=== PATIENT | female | born 1995 | race Caucasian/White ===

== ENCOUNTER 2016-09-12 23:53 | Inpatient (IN) | payer BC ==
--- OUTSIDE RECORDS SUMMARY | 2016-09-12 23:57 | XMS REPORT | Continuity of Care Document ---
:1995 Author Organization [facility] [place] [address] Care Team Providers Name Role Phone George, Gertrude Primary Care Provider [phone] Source Comments This disclosure is being made pursuant to the OR Productivity program and maynot contain all information available regarding this patient.[facility] Active Allergies and Adverse Reactions Not on File Current Medications Be aware that medications may not be up to date as of this document. Alwaysverify current medications with the patient. No known medications Active Problems Not on file Social History Tobacco Use Types Packs/Day Years Used Date Never Smoker Smokeless Tobacco: Never Used Alcohol Use Drinks/Week oz/Week Comments No 0 Standard drinks or equivalent 0.0 Last Filed Vital Signs Vital Sign Reading Time Taken Blood Pressure 106/74 09/09/2015 9:36 AM CDT Pulse 86 09/09/2015 9:36 AM CDT Temperature - - Respiratory Rate - - Height 1.588 m (5' 2.5") 09/09/2015 9:36 AM CDT Weight 60.782 kg (134 lb) 09/09/2015 9:36 AM CDT Body Mass Index 24.1 09/09/2015 9:36 AM CDT Oxygen Saturation - - Plan of Care Date Type Specialty Providers Description 09/19/2016 Appointment Obstetrics and Gynecology Yasemin Valdes MD [facility] [address] [place] [address] [phone] (Fax) Health Maintenance Due Date Last Done Comments HPV Vaccine ([id number]) (1 of 3 - Female 3 Dose Series) 2004 Chlamydia Screening 2009 Tetanus/Pertussis (1 - Tdap) 2012 Influenza Immunization (#1) 2015 Pap Smear 09/08/2018 09/09/2015 Results from Last 3 Months Not on file
[2016-09-13] MEDS ORDERED: RINGERS SOLUTION,LACTATED 1,000 ML IV ONE (00:01)
[2016-09-13] MEDS ORDERED: DEXTROSE 5%-LACTATED RINGERS 1,000 ML IV PRN (00:01)
[2016-09-13] MEDS ORDERED: OXYTOCIN/DEXTROSE 5%-WATER 30 UNITS/500 ML BAG IV ONE ×2 (00:01→19:22)
[2016-09-13] MEDS ORDERED: LIDOCAINE HCL 50 ML VIAL PERI PRN (00:01)
[2016-09-13] MEDS ORDERED: INSULIN REGULAR HUMAN REC 100 UNITS in NORMAL SALINE 100 ML IV PRN (00:01)
[2016-09-13] MEDS ORDERED: PENICILLIN G POTASSIUM 5 MILLIONUNT in DEXTROSE 5 % IN WATER 100 ML IV ONE ×2 (00:01)
[2016-09-13] MEDS ORDERED: MISOPROSTOL 100 MCG TABLET VG PRN (00:01)
[2016-09-13] MEDS ORDERED: ONDANSETRON HCL/PF 2 MG/ML VIAL IV PRN ×2 (00:01→08:10)
[2016-09-13] MEDS: PENICILLIN G POTASSIUM 2.5 MILLIONUNT in DEXTROSE 5 % IN WATER 100 ML IV SCH ×8 (04:21→16:35)
[2016-09-13] MEDS ORDERED: TERBUTALINE SULFATE 1 MG/ML VIAL SC ONE (04:45)
[2016-09-13] MEDS ORDERED: NALOXONE HCL 1 MG/1 ML SYRG IV PRN (08:10)
[2016-09-13] MEDS ORDERED: BUPIVACAINE HCL/0.9 % NACL/PF 250 ML EP PRN (08:10)
--- NOTE | 2016-09-13 08:37 | PN ---
Progess Note - Interim Narrative: 09/13/16 08:35 Patient starting to become uncomfortable with contractions Vital signs stable. Blood sugars between 65 - 80 FHT: 130 baseline, reassuring Contractions q 2-3 min Cervix: /-1 Impression: Intrauterine at 39 weeks, induction of labor for gestational diabetes Plan: Continue present plan
--- NOTE | 2016-09-13 11:42 | OR ---
Anesthesia Procedure Note - Anesthesia Procedure Note Narrative: Vital Signs - Last Taken Temp 36.9 C 09/13/16 08:13 Pulse 101 H 09/13/16 08:13 Resp 18 09/13/16 08:13 BP 118/77 09/13/16 08:13 Pulse Ox 97 09/13/16 08:13 09/13/16 11:41 ANESTHESIA PROCEDURE NOTE Date of Procedure: 09/13/2016 Time of procedure: 0 810. Performed by: Jerry Gomez CRNA Soccer Ball Assembler: None. Preprocedure diagnosis: Active labor. Post procedure diagnosis: Same. Procedure: Insertion of labor epidural. Indications: The patient is a 21 -year-old prima para female in active labor requesting labor epidural for pain management. Findings: See below. Details of the procedure: The patient was placed in a sitting position. Back was prepped with DuraPrep. Patient was then draped in a sterile fashion. Lidocaine 1% was infiltrated to the skin and subcutaneous tissues at the level of the L3 4 interspace. The epidural space was identified using a 18-gauge Tuohy needle with [id number] technique. Epidural catheter was inserted without difficulty. Negative test dose was elicited using 5 mL of 1.5 % preservative-free lidocaine plus epinephrine 1 200,000. The epidural catheter was then taped and secured in place. EBL: Minimal. Fluids: N/A. Specimen: N/A. Post procedure condition: The patient tolerated the procedure well. No complications were noted. Thank you for this consultation. Gant CRNA
[2016-09-13] MEDS ORDERED: GLYCERIN/WITCH HAZEL LEAF 40 APPL BOX TP PRN (19:22)
[2016-09-13] MEDS ORDERED: HYDROCORTISONE 30 APPL TUBE TP PRN (19:22)
[2016-09-13] MEDS ORDERED: SENNOSIDES 8.6 MG TABLET PO PRN (19:22)
[2016-09-13] MEDS ORDERED: BISACODYL 10 MG SUPP.RECT RC PRN (19:22)
[2016-09-13] MEDS ORDERED: BENZOCAINE/MENTHOL 81 SPRAY CAN TP PRN (19:22)
[2016-09-13] MEDS ORDERED: oxyCODONE HCL/ACETAMINOPHEN 1 TAB TABLET PO PRN ×2 (19:22)
--- NOTE | 2016-09-13 19:28 | OR ---
Operative Report - Dictated Report Narrative: Spontaneous vaginal delivery of viable female at 1857 on 09/13/2016 with Apgars 8 and 9, weighing 3401 g with tight nuchal cord 1 and left compound arm presentation. Cord clamping delayed approximately 1 minute Placenta delivered complete, intact, with three vessel cord Estimated blood loss: less than 50 ml Lacerations: None History for MU Definition: * The number of deliveries resulting in a live the patient experienced prior to current hospitalization * The previous delivery of live twins or any live multiple gestation is considered one live event. *If primagravida or nulliparous is documented select zero for the number of previous live births. Live Events: 0
[2016-09-13] MEDS: IBUPROFEN 800 MG TABLET PO PRN (21:47)
[2016-09-13] MEDS: DOCUSATE SODIUM 100 MG CAPSULE PO SCH (21:48)
[2016-09-14] MEDS: DOCUSATE SODIUM 100 MG CAPSULE PO SCH ×2 (08:57→21:45)
[2016-09-14] MEDS ORDERED: PRENATAL VIT#96/FERROUS FUM/FA 1 TAB TABLET PO SCH (09:00)
[2016-09-14] MEDS ORDERED: FERROUS SULFATE 325 MG TABLET PO SCH (09:00)
[2016-09-14] MEDS ORDERED: MAGNESIUM OXIDE 400 MG TABLET PO SCH (09:45)
--- NOTE | 2016-09-14 11:53 | PN ---
Subjective - Date and Time Seen Date: 09/14/16 Time: 11:52 Objective - Vitals Vitals: Last Vital Signs Temp 36.7 C 09/14/16 07:20 Pulse 67 09/14/16 07:20 Resp 18 09/14/16 07:20 BP 108/74 09/14/16 07:20 Pulse Ox 97 09/14/16 07:20 Patient denies complaints. Lochia wnl Abdomen - soft, nontender Uterus - firm, at umbilicus - 1 No calf tenderness Fasting blood sugar within normal limits but 1 hour postprandial blood sugar was elevated Impression: day #1 - s/p spontaneous vaginal delivery. Gestational diabetes-resolving. Plan: Continue routine care. Recheck a fasting and one-hour postprandial blood sugar in a.m. Nancy Physician Documentation - Urinary Catheter Management Urethral (Malcolm) Date of Insertion: 09/13/16 Time of Insertion: 11:30
[2016-09-14] MEDS: IBUPROFEN 800 MG TABLET PO PRN (17:57)
[2016-09-15] MEDS: IBUPROFEN 800 MG TABLET PO PRN (01:17)
[2016-09-15 07:25] VITALS: BP 106/69
--- NOTE | 2016-09-15 12:26 | PN ---
Subjective - Date and Time Seen Date: 09/15/16 Time: 12:24 Objective - Vitals Vitals: Last Vital Signs Temp 36.8 C 09/15/16 07:20 Pulse 82 09/15/16 07:20 Resp 16 09/15/16 07:20 BP 106/69 09/15/16 07:20 Pulse Ox 98 09/15/16 07:20 Patient denies complaints. Blood sugars good control Lochia wnl Abdomen - soft, nontender Uterus - firm, at umbilicus - 2 No calf tenderness Impression: day #2 - s/p spontaneous vaginal delivery. Gestational diabetes-resolved. Plan: Routine discharge instructions. Patient to check a fasting and one-hour postprandial blood sugar the day before her visit. Cauti Physician Documentation - Urinary Catheter Management Urethral (Malcolm) Date of Insertion: 09/13/16 Time of Insertion: 11:30
== END 2016-09-15 12:15 | disposition home or self-care (01) | DRG 775 ==
LOC: OB 23:53
PROVIDERS: ADMIT Obstetrics & Gynecology; ATTEND Obstetrics & Gynecology
PROC: 10E0XZZ Delivery of Products of Conception, External Approach (ICD-10-PCS; principal; 2016-09-13)
PROC: 4A1HXCZ Monitoring of Products of Conception, Cardiac Rate, External Approach (ICD-10-PCS; 2016-09-13)
PROC: 3E0S3CZ (ICD-10-PCS; 2016-09-13)
DX: O24.425 Gestational diabetes mellitus in childbirth, controlled by oral hypoglycemic drugs (principal); O99.02 Anemia complicating childbirth; D50.8 Other iron deficiency anemias; O99.824 Streptococcus B carrier state complicating childbirth; O69.1XX0 Labor and delivery complicated by cord around neck, with compression, not applicable or unspecified; Z3A.39 39 weeks gestation of pregnancy; Z37.0 Single live birth